=== PATIENT | male | born 1955 ===

== ENCOUNTER 2018-03-15 21:18 | Emergency (ER) | payer BC ==
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
[2018-03-15] MEDS ORDERED: BABY ASPIRIN 81 MG CHEW PO ONE (21:56)
[2018-03-15] MEDS ORDERED: BABY ASPIRIN 81 MG CHEW ONE (22:00)
[2018-03-15 22:02] VITALS: O2SAT 96
[2018-03-15 22:03] LABS: BASOPHIL % 0.3 % (0.0-0.4); Basophil (Absolute #) 0.02 (0-0.4); Eosinophil % 2.7 % (0.00-5.0); Eosinophil (Absolute #) 0.17 (0-0.5); Granulocyte Absolute (ANC) 4.14 (1.4-6.9); Granulocytes % 65.4 % (36.0-66.0); Hematocrit 41.5 % (42-50); Hemoglobin 14.1 gm/dl (12.5-18.0); Lymphocyte (Absolute #) 1.33 (1.0-4.6); Mean Cell Volume 85.2 fl (78-100); Mean Platelet Volume 11.2 fl (6-9.5); Monocyte (Absolute #) 0.67 (0.0-1.3); Monocytes % 10.6 % (0.0-12.0); Platelet Count 226 K/mm3 (150-450); Red Blood Count 4.87 M/mm3 (4.1-5.6); Red Cell Distribution Width 14.1 % (11.5-14.0); White Blood Count 6.3 K/mm3 (4.0-10.5)
[2018-03-15 22:18] LABS: ALBUMIN 3.7 g/dL (3.5-5.0); ALKALINE PHOSPHATASE 62 U/L (38-126); ANION GAP 9.7 MEQ/L (5-15); BLOOD UREA NITROGEN 18 mg/dL (9-20); CHLORIDE 109 mmol/L (98-107); Carbon Dioxide 28 mmol/L (22-30); Creatinine 1 1.22 mg/dL (0.66-1.25); Glucose 127 mg/dL (74-106); Potassium 3.7 mmol/L (3.5-5.1); SGOT/AST 23 U/L (17-59); SGPT/ALT 20 U/L (0-50); SODIUM 143 mmol/L (137-145); Total Protein 6.6 g/dL (6.3-8.2)
[2018-03-15 22:27] LABS: NT PRO BNP 23.4 pg/mL (0-900)
[2018-03-15 23:07] VITALS: BP 108/73; PULSE 69
--- NOTE | 2018-03-16 08:57 | XRAY ---
Indication: Chest tightness, short of breath, and dizziness. Comparison: None PA/lateral chest demonstrates minimal lingular fibrosis/scarring and a few tiny calcified granulomas. Remaining heart and lungs normal. Bony thorax intact with minimal degenerative changes and old left clavicle fracture. Impression: Nonacute chest with chronic features.
== END 2018-03-15 23:09 | disposition home or self-care (01) ==
LOC: ED 21:18
DX: R07.89 Other chest pain (principal); R06.02 Shortness of breath; R42 Dizziness and giddiness; R19.7 Diarrhea, unspecified
CPT/HCPCS: 36000; 36415; 71046; 80053; 83880; 84484; 85025; 93005; 93041; 99284; A9270-GY

== ENCOUNTER 2019-08-30 06:17 | Day surgery (SDC) | payer BC ==
[2019-08-30] MEDS ORDERED: Lactated Ringers 1,000 ML IV SCH (06:30)
[2019-08-30] MEDS ORDERED: Ketamine HCl 50 MG/ML ONE (07:59)
[2019-08-30] MEDS ORDERED: DIPRIVAN 200 MG/20 ML IV ONE ×2 (07:59→08:22)
[2019-08-30 09:24] VITALS: PULSE 70; O2SAT 98
--- NOTE | 2019-08-30 10:08 | OP ---
SURGERY DATE/TIME: 08/30/2019 0806 PREOPERATIVE DIAGNOSES: 1) History of peptic ulcer disease. 2) History of colon polyps. POSTOPERATIVE DIAGNOSES: 1) Normal EGD. 2) Normal colonoscopy. PROCEDURES: 1) EGD. 2) Colonoscopy. SURGEON: Daron Perez M.D. ANESTHESIA: MAC by David Rodriguez CRNA. ESTIMATED BLOOD LOSS: None. SPECIMENS: None. DESCRIPTION OF PROCEDURE: After informed written consent was obtained, the patient was taken to the endoscopy suite. He had a bite block inserted and underwent monitored anesthesia and was placed in the left lateral decubitus position. The endoscope was inserted in the posterior oropharynx and under direct visualization the esophagus was traversed. The gastroesophageal junction appeared normal and upon entry into the stomach there was normal rugated gastric mucosa. The area of the pylorus was traversed and the first and second portions of the duodenum showed no evidence of any ulceration or abnormalities of mucosa. Upon withdrawal from the pylorus likewise the gastric antrum was free of any lesions or defects. Retroflexion showed no mucosal abnormalities in the cardiac portion of the stomach. Upon withdrawal the gastroesophageal junction and esophageal mucosa had normal mucosal appearance. The scope was removed and the scopes were switched. Digital rectal exam showed normal sphincter tone and no internal lesions. The scope was inserted in the rectum and sequentially the entire colonic mucosa was traversed. The level of cecum was reached and verified with direct visualization of ileocecal valve. Upon withdrawal careful mucosal inspection revealed no gross abnormalities. Prep was noted to be fair. Prior to withdrawal retroflexion was performed and showed no internal lesions. The scope was removed and the patient was transferred to the recovery room in good condition.
[2019-08-30 12:25] VITALS: BP 114/70
== END 2019-08-30 09:55 | disposition home or self-care (01) ==
LOC: SDC 06:17
PROVIDERS: ATTEND Family Medicine
DX: Z87.11 Personal history of peptic ulcer disease (principal); Z86.010 Personal history of colon polyps
CPT/HCPCS: 94250; J2704